=== PATIENT | female | born 1980 | race Caucasian/White ===

== ENCOUNTER 2020-07-17 14:14 | Outpatient (CLI) | payer OTHER ==
--- NOTE | 2020-07-27 11:57 | MMO ---
Bilateral MAMMO Bilat Screen [facility]. CLINICAL HISTORY: Patient is 40 years old and is seen for screening. The patient has no family history of breast cancer. The patient has no personal history of cancer. VIEWS: The views performed were: bilateral craniocaudal with tomosynthesis and bilateral mediolateral oblique with tomosynthesis. FILMS COMPARED: The present examination has been compared to a prior imaging study performed at This study has been interpreted with the assistance of computer-aided detection. MAMMOGRAM FINDINGS: There are scattered fibroglandular densities. There are no suspicious masses, suspicious calcifications, or new areas of architectural distortion. IMPRESSION: THERE IS NO MAMMOGRAPHIC EVIDENCE OF MALIGNANCY. A ROUTINE FOLLOW-UP MAMMOGRAM IN 1 YEAR IS RECOMMENDED. THE RESULTS OF THIS EXAM WERE SENT TO THE PATIENT. ACR BI-RADS Category 1 - Negative MAMMOGRAPHY NOTE: 1. A negative mammogram report should not delay a biopsy if a dominant of clinically suspicious mass is present. 2. Approximately 10% to 15% of breast cancers are not detected by mammography. 3. Adenosis and dense breasts may obscure an underlying neoplasm. Reported by: BIRD CAST MD Electonically Signed: [id number]
== END 2020-07-17 14:15 | disposition home or self-care (01) ==
LOC: BICMAMMO 14:14
PROVIDERS: ATTEND Nurse Practitioner Family
DX: Z12.31 Encounter for screening mammogram for malignant neoplasm of breast (principal)
CPT/HCPCS: 77063; 77067

== ENCOUNTER 2020-10-03 07:34 | Outpatient (CLI) | payer OTHER | END 2020-10-03 07:35 | disposition home or self-care (01) | LOC: DTY/OP 07:34 | PROVIDERS: ATTEND Nurse Practitioner Family | DX: R73.09 Other abnormal glucose (principal) | CPT/HCPCS: 97802 ==

== ENCOUNTER 2023-06-01 07:20 | Outpatient (CLI) | payer BC ==
[2023-06-01] MEDS ORDERED: Iopamidol 370 76% 100 ML VIAL ONE (09:55)
== END 2023-06-01 07:21 | disposition home or self-care (01) ==
LOC: BICCT 07:20
PROVIDERS: ATTEND Nurse Practitioner Family
DX: M25.552 Pain in left hip (principal); R19.00 Intra-abdominal and pelvic swelling, mass and lump, unspecified site; R10.9 Unspecified abdominal pain; N83.9 Noninflammatory disorder of ovary, fallopian tube and broad ligament, unspecified
CPT/HCPCS: 74178; Q9967

== ENCOUNTER → 2023-07-09 | Day surgery (SDC) | payer BC ==
[~2023-07-09] MED LIST: Lidocaine 1% PF 5 ML VIAL ONE; Sodium Bicarbonate 2.5 MEQ/5 ML VIAL ONE
[2023-07-09 09:35] LABS: #Eosinphils 0.1 thou/uL (0.0-0.7); #Monocytes 0.3 thou/uL (0.11-0.59); #Neutrophils 3.3 thou/uL (1.40-6.50); %Basophils 0.5 % (0.0-1.0); %Eosinophils 1.8 % (0.0-10.0); %Lymphocytes 38.3 % (21.0-51.0); %Monocytes 5.4 % (0.0-10.0); %Neutrophils 53.7 % (42.0-75.0); Hematocrit 38.7 % (36.0-47.0); Hemoglobin 12.8 g/dL (12.0-16.0); Mean Corpuscular HGB CONC 33.1 g/dL (32.0-36.0); Mean Corpuscular Hemoglobin 26.8 pg (27.0-31.0); Mean Corpuscular Volume 81.1 fl (78.0-98.0); Mean Platelet Volume 8.4 fL (7.4-10.4); Platelet Count 361 10x3/uL (130-400); Red Blood Cell (RBC) Count 4.77 mill/uL (4.20-5.40); White Blood Cell (WBC) Count 6.1 10x3/uL (4.8-10.8)
[2023-07-09 09:49] LABS: INR-International Normal Ratio 0.9; Prothrombin Time 12.1 sec (12.0-14.7)
[2023-07-09 09:50] LABS: PTT 31.1 sec (22.9-36.1)
[2023-07-09 12:31] VITALS: BMI 52.1
[2023-07-09 12:40] VITALS: BP 127/72
== END ==
LOC: ULT 09:32
PROVIDERS: ATTEND Surgery
DX: R19.00 Intra-abdominal and pelvic swelling, mass and lump, unspecified site (principal)
CPT/HCPCS: 20206; 85025; 85610; 85730; 88305; 88333; 88334

== ENCOUNTER 2023-09-18 10:04 | Outpatient (CLI) | payer BC ==
[2023-09-18 10:44] LABS: #Eosinphils 0.1 10x3/uL (0.0-0.5); #Monocytes 0.4 10x3/uL (0.0-1.1); #Neutrophils 1.4 10x3/uL (1.5-8.4); %Basophils 0.3 % (0.0-2.0); %Eosinophils 1.7 % (0.0-6.0); %Lymphocytes 36.2 % (18.0-47.0); %Monocytes 13.4 % (0.0-10.0); %Neutrophils 48.4 % (40.0-75.0); Hematocrit 38.4 % (34.9-44.5); Hemoglobin 12.5 g/dL (12.0-15.5); Mean Corpuscular HGB CONC 32.6 g/dL (32.0-36.0); Mean Corpuscular Hemoglobin 25.8 pg (27.0-33.0); Mean Corpuscular Volume 79.3 fl (81.6-98.3); Mean Platelet Volume 8.8 fl (7.4-10.4); Platelet Count 261 10x3/uL (150-450); RBC Distribution Width 13.5 % (11.5-14.5); Red Blood Cell (RBC) Count 4.84 10x6/uL (3.90-5.03); White Blood Cell (WBC) Count 2.9 10x3/uL (3.5-10.5)
[2023-09-18 11:12] LABS: Anion Gap 13 mmol/L (10-20); BUN (Urea Nitrogen) 13 mg/dL (7.0-18.7); Calc. Creatinine Clearance 0 mL/min (70-130); Calcium 8.5 mg/dL (7.8-10.44); Carbon Dioxide 21 mmol/L (22-29); Chloride 106 mmol/L (98-107); Estimated GFR 92; Glucose 106 mg/dL (70-105); Potassium 4.1 mmol/L (3.5-5.1); Sodium 136 mmol/L (136-145)
== END 2023-09-18 10:05 | disposition home or self-care (01) ==
LOC: LABBT 10:04
PROVIDERS: ATTEND Surgery
DX: Z01.812 Encounter for preprocedural laboratory examination (principal); C76.8 Malignant neoplasm of other specified ill-defined sites
CPT/HCPCS: 80048; 85025

== ENCOUNTER 2023-09-22 08:52 | Day surgery (SDC) | payer BC ==
[2023-09-18 10:33] VITALS: BMI 51.8
[2023-09-22] MEDS ORDERED: fentaNYL PF 100 MCG/2 ML SYRINGE ONE (09:11)
[2023-09-22] MEDS ORDERED: PROPOFOL 20 ML ONE ×2 (09:12→09:59)
[2023-09-22] MEDS ORDERED: SUGAMMADEX SODIUM 200 MG/2 ML VIAL ONE (09:12)
[2023-09-22] MEDS ORDERED: EPINEPHrine 1 MG/ML VIAL ONE (09:17)
[2023-09-22] MEDS ORDERED: Bupivacaine 0.25% HCL 30 ML VIAL ONE (09:17)
[2023-09-22] MEDS ORDERED: CEFAZOLIN 2 GM VIAL ONE (09:37)
[2023-09-22] MEDS ORDERED: Sodium Chloride 0.9% 100 ML ONE (09:37)
[2023-09-22] MEDS ORDERED: PROPOFOL 200 MG/20 ML VIAL ONE (09:51)
[2023-09-22] MEDS ORDERED: Ondansetron PF 4 MG/2 ML Vial ONE ×2 (09:51→10:10)
[2023-09-22] MEDS ORDERED: PHENYLEPHRINE-NS 100 MCG/ML 10 ML SYRINGE ONE ×2 (09:51→10:41)
[2023-09-22] MEDS ORDERED: Dexamethasone 20 MG/5 ML VIAL ONE (09:51)
[2023-09-22] MEDS ORDERED: Ketorolac Tromethamine 30 MG/ML VIAL ONE ×2 (09:51→10:18)
[2023-09-22] MEDS ORDERED: Lidocaine 1% PF 5 ML VIAL ONE ×2 (09:51→10:14)
[2023-09-22] MEDS ORDERED: ePHEDrine Sulfate 50 MG/10 ML VIAL ONE ×2 (09:51→10:20)
[2023-09-22] MEDS ORDERED: Rocuronium Bromide 10 MG/ML (10ML VIAL) ONE (09:51)
== END 2023-09-22 14:04 | disposition home or self-care (01) ==
LOC: SDC 08:52
PROVIDERS: ATTEND Surgery
PROC: 0JB80ZZ Excision of Abdomen Subcutaneous Tissue and Fascia, Open Approach (ICD-10-PCS; principal; 2023-09-22)
DX: C49.6 Malignant neoplasm of connective and soft tissue of trunk, unspecified (principal); F41.9 Anxiety disorder, unspecified; F31.9 Bipolar disorder, unspecified; I10 Essential (primary) hypertension; M19.90 Unspecified osteoarthritis, unspecified site; Z86.16 Personal history of COVID-19; Z87.891 Personal history of nicotine dependence; Z88.1 Allergy status to other antibiotic agents; Z91.018 Allergy to other foods; Z79.899 Other long term (current) drug therapy
CPT/HCPCS: 88305; 88341; 88342; 88360; J0171; J1100; J1885; J2405; J2704; J3490; S0020